=== PATIENT | male | born 1990 | race Native Hawaiian/Other Pacific Islander ===

== ENCOUNTER 2016-12-04 18:40 | Inpatient (IN) | payer OTHER ==
[2016-12-04] MEDS ORDERED: Sodium Chloride 0.9% 1,000 ML IV STA ×2 (20:05→22:47)
--- NOTE | 2016-12-04 20:18 | ED PDOC ---
HPI:Nausea, Vomiting, Diarrhea Pain Scale Rating Of: 0 Additional Complaint(s): 26 y/o M with unremarkable PMH presents with a 1 day history of fever and diarrhea. Patient reports waking up this morning feeling "really sick" and with urgent diarrhea. Since then, he has been experiencing fever around 104.0 and 5- 6 episodes of watery, non-bloody diarrhea. He has associated chills and nausea but denies abdominal pain, vomiting, dysuria, urinary urgency, malodorous urine , sore throat, rhinorrhea or cough. Patient traveled to [place] last week where he had unprotected receptive anal intercourse. He denies rectal pain or bleeding. Patient visited an urgent care center 4 hours ago for above complaints and was given augmentin for "protein in the urine." He also been taking Truvada for HIV pre-exposure prophylaxis for months. <Katarzyna Sheridan - Last Filed: 12/05/16 01:55> <Melinda Cooney - Last Filed: 12/05/16 15:17> Time Seen by Provider: 12/04/16 18:52 Chief Complaint (Nursing): Fever Supervising Attending Note - Supervising Attending Note The Documented history was done by the: Physician Correctional Therapy Director, Attending Physician The documented physical exam was done by the: Physician Correctional Therapy Director, Attending Physician - Attestation: I have personally seen and examined this patient.: Yes I have fully participated in the care of the patient.: Yes I have reviewed all pertinent clinical information, including history, physical exam and plan: Yes - Notes: Notes:: Fever, severe diarrhea, hypotension, hypokalemia, colitis. Hospitalized for sepsis Serial lactic acid negative for severe sepsis and pt reports at baseline he has low blood pressure. GEORGE Cho Med service for hospitalization <Melinda Cooney - Last Filed: 12/05/16 15:17> Past Medical History Vital Signs: Last Vital Signs Temp 102.4 F H 12/04/16 18:45 Pulse 110 H 12/04/16 18:45 Resp 20 12/04/16 18:45 BP 102/54 L 12/04/16 18:45 Pulse Ox 98 12/04/16 18:45 - Family History Family History: States: Unknown Family Hx <Katarzyna Sheridan - Last Filed: 12/05/16 01:55> Vital Signs: Last Vital Signs Temp 98.9 F 12/05/16 12:00 Pulse 77 12/05/16 12:00 Resp 18 12/05/16 12:00 BP 107/62 12/05/16 12:00 Pulse Ox 100 12/05/16 12:00 <ErosMelinda J - Last Filed: 12/05/16 15:17> - Home Medications Home Medications: Ambulatory Orders Medication Instructions Recorded Emtricitabine/Tenofovir Diso 1 tab PO DAILY 12/05/16 [Truvada 200 MG-300 MG] - Allergies Allergies/Adverse Reactions: Allergies Allergy/AdvReac Type Severity Reaction Status Date / Time No Known Allergies Allergy Verified 12/04/16 18:44 Review of Systems Constitutional: Positive for: Fever, Chills Cardiovascular: Negative for: Chest Pain, Palpitations Respiratory: Negative for: Cough, Shortness of Breath, Sputum, Wheezing Gastrointestinal: Positive for: Nausea, Diarrhea. Negative for: Vomiting, Abdominal Pain, Hematochezia, Rectal Pain Genitourinary Male: Negative for: Dysuria, Frequency, Hematuria, Penile Discharge, Penile Pain Neurological: Negative for: Confusion, Altered Mental Status, Dizziness <Katarzyna Sheridan - Last Filed: 12/05/16 01:55> Physical Exam - Physical Exam Appears: Positive for: No Acute Distress Head Exam: Positive for: ATRAUMATIC, NORMAL INSPECTION, NORMOCEPHALIC Skin: Positive for: Normal Color, Warm, Dry. Negative for: Diaphoresis Eye Exam: Positive for: Normal appearance, EOMI, PERRL ENT: Negative for: Sinus Pain/Drainage, Nasal Congestion, Pharyngeal Erythema, Tonsillar Exudate Cardiovascular/Chest: Positive for: Regular Rate, Rhythm. Negative for: Murmur , Tachycardia Respiratory: Positive for: Normal Breath Sounds. Negative for: Crackles, Rales , Stridor, Wheezing Gastrointestinal/Abdominal: Positive for: Bowel Sounds (hyperactive), Soft. Negative for: Tenderness, Distended, Rebound Back: Negative for: L CVA Tenderness, R CVA Tenderness Extremity: Positive for: Capillary Refill (<3s) Neurologic/Psych: Positive for: Alert, Oriented (x3) <Katarzyna Sheridan - Last Filed: 12/05/16 01:55> - Laboratory Results Result Diagrams: 12/04/16 20:40 12/04/16 20:40 - ECG O2 Sat by Pulse Oximetry: 98 - Progress ED Course And Treament: CBC, CMP, UA, Urine GC/Chlamydia and Stool studies ordered Tylenol, toradol, zofran, IVF bolus ordered 22:50 Pt received 2L NS bolus. Starting D5/NS Cipro + Flagyl administered Potassium bicarb 50meq given for hypokalemia <Katarzyna Sheridan - Last Filed: 12/05/16 01:55> - Laboratory Results Result Diagrams: 12/05/16 07:35 12/05/16 07:35 - Critical Care Total Time (In Min): 30 Comments: Serial exams, aggressive IV hydration, sepsis. Documented Critical Care: Time excludes all time spent performint seperately billable procedures <Melinda Cooney - Last Filed: 12/05/16 15:17> Disposition - Patient ED Disposition Is Patient to be Admitted: Yes Counseled Patient/Family Regarding: Studies Performed - Disposition Disposition Time: 01:56 - Pt Status Changed To: Hospital Disposition Of: Inpatient - Admit Certification Admit to Inpatient:: After my assessment, the patient will require hospitalization for at least two midnights. This is because of the severity of symptoms shown, intensity of services needed, and/or the medical risk in this patient being treated as an outpatient. <Katarzyna Sheridan - Last Filed: 12/05/16 01:55> <Melinda Cooney - Last Filed: 12/05/16 15:17> - Clinical Impression Clinical Impression: Colitis - Disposition Condition: FAIR
[2016-12-04 20:42] LABS: VENOUS BLOOD GAS BASE EXCESS 2.2 mmol/L (0.0-2.0); VENOUS BLOOD GAS PCO2 46 mmHg (40-60); VENOUS BLOOD PH 7.39 (7.32-7.43)
[2016-12-04 20:51] LABS: BASO % 0.2 % (0.0-2.0); HEMATOCRIT 44.2 % (35.0-51.0); LYMPH # 1.8 K/uL (1.0-4.3); LYMPH % 11.9 % (20.0-40.0); MEAN CELL VOLUME 94.9 fl (80.0-94.0); MEAN CORPUSCULAR HEMOGLOBIN 31.4 pg (27.0-31.0); MEAN CORPUSCULAR HGB CONC 33.1 g/dL (33.0-37.0); MEAN PLATELET VOLUME 7.5 fl (7.2-11.7); MONO # 1.3 K/uL (0.0-0.8); MONO % 8.6 % (0.0-10.0); NEUT # 11.9 K/uL (1.8-7.0); NEUT % 79.3 % (50.0-75.0); RED CELL DISTRIBUTION WIDTH 12.8 % (11.5-14.5)
[2016-12-04] MEDS ORDERED: K-Lyte 25meq EF Tab PO ONE (21:00)
[2016-12-04 21:16] LABS: RBC URINE 1 /hpf (0-3); URINE BILIRUBIN NEGATIVE (NEGATIVE); URINE BLOOD NEGATIVE (NEGATIVE); URINE COLOR YELLOW (YELLOW); URINE GLUCOSE (UA) NEG (Normal); URINE KETONE 20 mg/dL (NEGATIVE); URINE LEUKOCYTE ESTERASE TRACE Leu/uL (Negative); URINE PROTEIN NEGATIVE (NEGATIVE); URINE UROBILINOGEN 0.2-1.0 mg/dL (0.2-1.0); WBC URINE 3 /hpf (0-5)
[2016-12-04 21:25] LABS: ALB/GLOB RATIO 1.4 (1.0-2.1); ALKALINE PHOSPHATASE 48 U/L (38-126); ALT/SGPT 31 U/L (21-72); AST/SGOT 33 U/L (17-59); BILIRUBIN,TOTAL 1.7 mg/dl (0.2-1.3); BLOOD UREA NITROGEN 13 mg/dl (9-20); CALCIUM 8.7 mg/dL (8.4-10.2); CARBON DIOXIDE 25 mmol/L (22-30); CHLORIDE 96 mmol/L (98-107); GFR AFRICAN-AMERICAN > 60; GLUCOSE,RANDOM 111 mg/dL (75-110); MAGNESIUM 1.7 MG/DL (1.6-2.3); PHOSPHOROUS 3.1 mg/dl (2.5-4.5); POTASSIUM 3.3 MMOL/L (3.6-5.0); SODIUM 134 mmol/l (132-148); TOTAL PROTEIN 7.2 G/DL (6.3-8.2)
[2016-12-04] MEDS ORDERED: Atropine-Diphenoxylate 0.025-2.5 mg Tab PO ONE (22:00)
[2016-12-04] MEDS ORDERED: metroNIDAZOLE 500mg/100ml NS 100 ML IV STA (22:50)
[2016-12-04] MEDS ORDERED: Ciprofloxacin 400mg/200ml D5W 400 MG/200 ML BAG IV STA (22:50)
[2016-12-04] MEDS ORDERED: Sodium Chloride 0.9% 50 ML IV ONE (22:56)
[2016-12-04] MEDS ORDERED: Iohexol 300 100 ML IJ ONE (22:56)
[2016-12-04] MEDS ORDERED: Sodium Chloride 0.9% 2,000 ML IV STA (22:59)
[2016-12-05] MEDS ORDERED: Ciprofloxacin 400mg/200ml D5W 400 MG/200 ML BAG IVPB ONE (00:08)
[2016-12-05] MEDS ORDERED: K-Lyte 25meq EF Tab PO ONE (00:08)
[2016-12-05] MEDS ORDERED: metroNIDAZOLE 500mg/100ml NS 100 ML IVPB ONE (00:08)
[2016-12-05 00:17] LABS: VENOUS BLOOD GAS BASE EXCESS -2.4 mmol/L (0.0-2.0); VENOUS BLOOD GAS PCO2 42 mmHg (40-60); VENOUS BLOOD PH 7.35 (7.32-7.43)
[2016-12-05] MEDS: Potassium CL 10mEq/100ml 100 ML IVPB SCH ×2 (01:20→03:36)
[2016-12-05 08:02] LABS: HEMATOCRIT 38.2 % (35.0-51.0); MEAN CELL VOLUME 95.7 fl (80.0-94.0); MEAN CORPUSCULAR HEMOGLOBIN 31.5 pg (27.0-31.0); RED CELL DISTRIBUTION WIDTH 12.9 % (11.5-14.5); WHITE BLOOD COUNT 7.7 K/uL (4.8-10.8)
--- NOTE | 2016-12-05 08:17 | CT ---
PROCEDURE: CT Abdomen and Pelvis with contrast HISTORY: diarrhea hypotension COMPARISON: None. TECHNIQUE: Contrast dose: 90 cc Omnipaque 300 Radiation dose: Total exam DLP = 49.26 mGy-cm. This CT exam was performed using one or more of the following dose reduction techniques: Automated exposure control, adjustment of the mA and/or kV according to patient size, and/or use of iterative reconstruction technique. FINDINGS: LOWER THORAX: Unremarkable. LIVER: Unremarkable. No gross lesion or ductal dilatation. GALLBLADDER AND BILE DUCTS: Unremarkable gallbladder. Trace pericholecystic fluid. PANCREAS: Unremarkable. No gross lesion or ductal dilatation. SPLEEN: Unremarkable. ADRENALS: Unremarkable. No mass. KIDNEYS AND URETERS: Unremarkable. No hydronephrosis. No solid mass. VASCULATURE: Unremarkable. No aortic aneurysm. BOWEL: Thickening of the wall of colon which is diffuse and mild likely colitis. No evidence of mechanical bowel obstruction. APPENDIX: Normal appendix. PERITONEUM: Unremarkable. No free fluid. No free air. LYMPH NODES: Unremarkable. No enlarged lymph nodes. BLADDER: Unremarkable. REPRODUCTIVE: Unremarkable. BONES: No acute fracture. OTHER FINDINGS: None. IMPRESSION: Diffuse colitis without evidence of mechanical bowel obstruction. This appears to be uncomplicated without evidence of free fluid, free air or drainable collection. Incidental finding(s): Periportal edema, a trace pericholecystic fluid without CT manifestations of cholelithiasis/cholecystitis. Concordant results (preliminary interpretation) provided by [employer]. Procedure Completed: 23:16. Preliminary ([facility]) Report: Dictated and Authenticated: 23:52. Final Interpretation: 08:15. December 05, 2016.
--- NOTE | 2016-12-05 08:21 | HP ---
CHIEF COMPLAINT: Diarrhea. HISTORY OF PRESENT ILLNESS: This is a 26-year-old male without significant past medical history, but who is homosexual and is being treated with Truvada for pre-exposure prophylaxis, who recently went to [place] and had receptive anal intercourse, who after returning started having very high fever and about 5-6 watery, nonbloody diarrhea associated with chills and nausea and abdominal pain, so patien liu came to Emergency Room and was found to have colitis and was admitted for further management. REVIEW OF SYSTEMS: Positive for abdominal pain, nausea, vomiting, chills and high fevers. Otherwise is negative for headache, dizziness, syncope, loss of consciousness, chest pain, shortness of breath , any new joint or extremity pain. All other organ systems unremarkable. The patient was also given Augmentin during his visit to urgent care center just before the admission. PAST MEDICAL HISTORY: Unremarkable. PAST SURGICAL HISTORY: Unremarkable. PERSONAL HISTORY: The patient is homosexual, nonsmoker, nondrinker, no substance abuse. MEDICATIONS: The patient is on Truvada for pre-exposure prophylaxis, but as far as patient knows, he is HIV negative. ALLERGIES: The patient is not allergic to any medication. FAMILY HISTORY: Noncontributory. PHYSICAL EXAMINATION: GENERAL: Well-built, fairly-nourished, 26-year-old male, in no acute distress. VITAL SIGNS: Temperature 100.2, pulse 97, respiration 18, blood pressure 94/54. HEENT: Pupils reacting to light. No JVD, no thyromegaly, no lymphadenopathy, no nystagmus. Normoce phalic, atraumatic skull. HEART: S1, S2 normal, regular. No significant murmur, gallop or rub is heard. LUNGS: Shows good bilateral air exchange. No rales or rhonchi. ABDOMEN: Soft, nontender, no organomegaly, no fluid. Bowel sounds are plus. EXTERNAL GENITALIA: Appropriate for patient's age. RECTAL: Stool for occult blood is negative. EXTREMITIES: No edema, no calf swelling, no tenderness, no acute ischemia. CENTRAL NERVOUS SYSTEM: The patient is alert, awake, oriented x 3. There is no sign of any acute gr oss focal, motor or sensory neurological deficit. DIAGNOSTIC DATA: Available reviewed. WBC 15, hemoglobin 14.6, hematocrit 44, platelets 187. PH 7.3 9, pCO2 46, pO2 25, saturation is 83 and 48%. Of course, this is a venous blood gas. Sodium 134, po tassium 3.3, chloride 96, bicarb 25, BUN 13, creatinine 1.1. SMA-12 is unremarkable. Urinalysis is negative. CAT scan of abdomen although officially not reported, showed colitis. EKG does not reveal any acute ST-T changes. DIAGNOSTIC IMPRESSION: Sepsis syndrome, colitis. PLAN: As ordered. Case and plan discussed with patient. Suhas Cho MD cc: [id number] TT: 12/05/2016 08:20:03 en
[2016-12-05 08:24] LABS: ALB/GLOB RATIO 1.2 (1.0-2.1); ALKALINE PHOSPHATASE 28 U/L (38-126); ALT/SGPT 26 U/L (21-72); AST/SGOT 19 U/L (17-59); BILIRUBIN,TOTAL 0.8 mg/dl (0.2-1.3); BLOOD UREA NITROGEN 8 mg/dl (9-20); CALCIUM 7.5 mg/dL (8.4-10.2); CARBON DIOXIDE 24 mmol/L (22-30); CHLORIDE 105 mmol/L (98-107); CHOLESTEROL 81 mg/dL (0-199); GFR AFRICAN-AMERICAN > 60; GLUCOSE,RANDOM 106 mg/dL (75-110); POTASSIUM 3.6 MMOL/L (3.6-5.0); SODIUM 136 mmol/l (132-148); TOTAL PROTEIN 5.3 G/DL (6.3-8.2)
[2016-12-05 08:40] LABS: T4 4.39 ug/dl (5.5-11.0)
[2016-12-05 08:54] LABS: THYROID STIMULATING HORMONE 0.09 mIU/ML (0.46-4.68)
[2016-12-05] MEDS: Emtricitabine-Tenofovir 200 mg-300 mg Tab PO SCH (09:26)
[2016-12-05] MEDS: Enoxaparin 40 mg Syringe SC SCH (09:51)
[2016-12-05] MEDS: Ciprofloxacin 400mg/200ml D5W 400 MG/200 ML BAG IVPB SCH ×2 (10:00→21:09)
[2016-12-05] MEDS ORDERED: metroNIDAZOLE 500mg/100ml NS 100 ML IVPB SCH (10:00)
--- NOTE | 2016-12-05 11:50 | CP.PCM.CON ---
History of Present Illness - History of Present Illness History of Present Illness: 26 y/o M presents with a 1 day history of fever and diarrhea. Patient reports waking up this morning feeling "really sick" and with urgent diarrhea. Since then, he has been experiencing fever around 104.0 and 5-6 episodes of watery, non-bloody diarrhea. He has associated chills and nausea but denies abdominal pain, vomiting, dysuria, urinary urgency, malodorous urine, sore throat, rhinorrhea or cough. Patient traveled to [place] last week where he had unprotected receptive anal intercourse. He denies rectal pain or bleeding. Patient visited an urgent care center 4 hours ago for above complaints and was given augmentin Takes Truvada for HIV pre-exposure prophylaxis for months. Review of Systems - Constitutional Constitutional: As Per HPI, Anorexia, Fever, Malaise - EENT Eyes: absent: As Per HPI, Blind Spots, Blurred Vision, Change in Vision, Decreased Night Vision, Diplopia, Discharge, Dry Eye, Exophthalmos, Floaters, Irritation, Itchy Eyes, Loss of Peripheral Vision, Pain, Photophobia, Requires Corrective Lenses, Sees Flashes, Spots in Vision, Tunnel Vision, Other Visual Disturbances, Loss of Vision, Other Ears: absent: As Per HPI, Decreased Hearing, Ear Discharge, Ear Pain, Tinnitus, Abnormal Hearing, Disequilibrium, Dizziness, Other Nose/Mouth/Throat: absent: As Per HPI, Epistaxis, Nasal Congestion, Nasal Discharge, Nasal Obstruction, Nasal Trauma, Nose Pain, Post Nasal Drip, Sinus Pain, Sinus Pressure, Bleeding Gums, Change in Voice, Dental Pain, Dry Mouth, Dysphagia, Halitosis, Hoarsness, Lip Swelling, Mouth Lesions, Mouth Pain, Odynophagia, Sore Throat, Throat Swelling, Tongue Swelling, Facial Pain, Neck Pain, Neck Mass, Other - Cardiovascular Cardiovascular: absent: As Per HPI, Acrocyanosis, Chest Pain, Chest Pain at Rest , Chest Pain with Activity, Claudication, Diaphoresis, Dyspnea, Dyspnea on Exertion, Edema, Irregular Heart Rhythm, Pain Radiating to Arm/Neck/Jaw, Leg Edema, Leg Ulcers, Lightheadedness, Orthopnea, Palpitations, Paroxysmal Nocturnal Dyspnea, Pedal Edema, Radiating Pain, Rapid Heart Rate, Slow Heart Rate, Syncope, Other - Respiratory Respiratory: absent: As Per HPI, Cough, Dyspnea, Hemoptysis, Dyspnea on Exertion , Wheezing, Snoring, Stridor, Pain on Inspiration, Chest Congestion, Excessive Mucous Production, Change in Mucous Color, Pain with Coughing, Other - Gastrointestinal Gastrointestinal: As Per HPI - Genitourinary Genitourinary: absent: As Per HPI, Change in Urinary Stream, Difficulty Urinating, Dysuria, Flank Pain, Hematuria, Pyuria, Nocturia, Urinary Incontinence, Urinary Frequency, Urinary Hesitance, Urinary Urgency, Voiding Freq/Small Amts, Freq UTI, Hx Renal/Bladder Calculi, Hx /Renal Surgery, Bladder Distension, Other - Reproductive: Male Reproductive:Male: As Per HPI - Musculoskeletal Musculoskeletal: absent: As Per HPI, Abnormal Gait, Arthralgias, Atrophy, Back Pain, Deformity, Joint Swelling, Limited Range of Motion, Loss of Height, Muscle Cramps, Muscle Weakness, Myalgias, Neck Pain, Numbness, Radiating Pain into Limb, Stiffness, Tingling, Other - Integumentary Integumentary: absent: As Per HPI, Acne, Alopecia, Bleeding Lesions, Change in Hair, Change in Nails, Change in Pigmentation, Changing Lesions, Dry Skin, Erythema, Furuncle, Hirsutism, Lesions, New Lesions, Non-Healing Lesions, Photosensitivity, Pruritus, Rash, Skin Pain, Skin Ulcer, Sores, Striae, Swelling , Unusual Bruising, Wounds, Jaundice, Other - Neurological Neurological: absent: As Per HPI, Abnormal Gait, Abnormal Hearing, Abnormal Movements, Abnormal Speech, Behavioral Changes, Burning Sensations, Confusion, Convulsions, Disequilibrium, Dizziness, Numbness, Focal Weakness, Frequent Falls , Headaches, Lack of Coordination, Loss of Vision, Memory Loss, Paresthesias, Radicular Pain, Restless Legs, Sensory Deficit, Syncope, Tingling, Tremor, Vertigo, Weakness, Other Visual Disturbances, Other - Psychiatric Psychiatric: absent: As Per HPI, Abnormal Sleep Pattern, Anhedonia, Anxiety, Auditory Hallucinations, Behavioral Changes, Change in Appetite, Change in Libido, Confusion, Depression, Difficulty Concentrating, Hallucinations, Homicidal Ideation, Hopelessness, Irritability, Memory Loss, Mood Swings, Panic Attacks, Paranoia, Suicidal Ideation, Visual Hallucinations, Tactile Hallucinations, Other - Endocrine Endocrine: absent: As Per HPI, Change in Body Appearance, Change in Libido, Cold Intolorance, Deepening of Voice, Excessive Sweating, Fatigue, Flushing, Heat Intolorance, Increase in Ring/Shoe/Hat Size, Palpitations, Polydipsia, Polyphagia, Polyuria, Other - Hematologic/Lymphatic Hematologic: absent: As Per HPI, Easy Bleeding, Easy Bruising, Lymphadenopathy, Other Past Patient History - Past Medical History & Family History Past Medical History?: No - Past Social History Smoking Status: Never Smoked - CARDIAC Hx Cardiac Disorders: No - PULMONARY Hx Respiratory Disorders: No - NEUROLOGICAL Hx Neurological Disorder: No - HEENT Hx HEENT Problems: No - RENAL Hx Chronic Kidney Disease: No - ENDOCRINE/METABOLIC Hx Endocrine Disorders: No - HEMATOLOGICAL/ONCOLOGICAL Hx Blood Disorders: Yes (HIV) - INTEGUMENTARY Hx Dermatological Problems: No - MUSCULOSKELETAL/RHEUMATOLOGICAL Hx Falls: No - GENITOURINARY/GYNECOLOGICAL Hx Genitourinary Disorders: No - PSYCHIATRIC Hx Substance Use: No Meds Allergies/Adverse Reactions: Allergies Allergy/AdvReac Type Severity Reaction Status Date / Time No Known Allergies Allergy Verified 12/04/16 18:44 - Medications Medications: Current Medications Acetaminophen (Tylenol 325mg Tab) 650 mg PO Q6 PRN PRN Reason: Fever >100.4 F Last Admin: 12/05/16 09:01 Dose: 650 mg Emtricitabine/Tenofovir (Truvada 200 Mg-300 Mg) 1 tab PO DAILY [facility] Last Admin: 12/05/16 09:26 Dose: 1 tab Enoxaparin Sodium (Lovenox) 40 mg SC DAILY [facility] PRN Reason: Protocol Last Admin: 12/05/16 09:51 Dose: Not Given Dextrose/Sodium Chloride (Dextrose 5%-0.9% Ns 500 Ml) 1,000 mls @ 150 mls/hr IV .Q6H40M [facility] Last Admin: 12/05/16 00:31 Dose: 150 mls/hr Ciprofloxacin (Cipro 400mg/200ml Dsw) 400 mg in 200 mls @ 200 mls/hr IVPB Q12 [facility] Last Admin: 12/05/16 10:00 Dose: 200 mls/hr Metronidazole (Flagyl 500mg/100ml Ns) 100 mls @ 100 mls/hr IVPB Q8 [facility] Physical Exam - Constitutional Appears: Non-toxic, Chronically Ill - Head Exam Head Exam: NORMOCEPHALIC - Eye Exam Eye Exam: PERRL. absent: Scleral icterus - ENT Exam ENT Exam: Mucous Membranes Dry, Normal External Ear Exam - Neck Exam Neck exam: Negative for: Lymphadenopathy - Respiratory Exam Respiratory Exam: Decreased Breath Sounds, Clear to Auscultation Bilateral - Cardiovascular Exam Cardiovascular Exam: REGULAR RHYTHM, +S1, +S2 - GI/Abdominal Exam GI & Abdominal Exam: Diminished Bowel Sounds, Soft. absent: Tenderness - Rectal Exam Rectal Exam: Deferred - Exam Exam: NORMAL INSPECTION - Extremities Exam Extremities exam: Negative for: calf tenderness, pedal edema - Back Exam Back exam: absent: CVA tenderness (L), CVA tenderness (R), paraspinal tenderness - Neurological Exam Neurological exam: Alert, CN II-XII Intact, Oriented x3, Reflexes Normal - Psychiatric Exam Psychiatric exam: Normal Mood - Skin Skin Exam: Dry, Intact Results - Vital Signs Recent Vital Signs: Last Vital Signs Temp 99.0 F 12/05/16 10:01 Pulse 91 H 12/05/16 09:00 Resp 18 12/05/16 08:33 BP 105/67 12/05/16 08:33 Pulse Ox 100 12/05/16 08:33 - Labs Result Diagrams: 12/05/16 07:35 12/05/16 07:35 Labs: Laboratory Results - last 24 hr 12/05/16 12/05/16 07:35 07:35 WBC 7.7 RBC 3.99 L Hgb 12.6 D Hct 38.2 MCV 95.7 H MCH 31.5 H MCHC 33.0 RDW 12.9 Plt Count 146 Sodium 136 Potassium 3.6 Chloride 105 Carbon Dioxide 24 Anion Gap 11 BUN 8 L Creatinine 0.9 Est GFR ( Amer) > 60 Est GFR (Non-Af Amer) > 60 Random Glucose 106 Calcium 7.5 L Total Bilirubin 0.8 AST 19 ALT 26 Alkaline Phosphatase 28 L D Total Protein 5.3 L Albumin 2.9 L D Globulin 2.4 Albumin/Globulin Ratio 1.2 Triglycerides 39 Cholesterol 81 LDL Cholesterol Direct 34 HDL Cholesterol 32 Vitamin B12 409 Thyroxine (T4) 4.39 L TSH 3rd Generation 0.09 L Assessment & Plan (1) Diarrhea Status: Acute (2) Fever and chills Status: Acute (3) Colitis Status: Acute - Assessment and Plan (Free Text) Assessment: cant r/o acute HIV based on neg screening louis- will order Viral PCR - will need follow up for this consider rectal swab for gonorrhea and chlamydia await cultures and serologies agree with empiric rx
[2016-12-05] MEDS: metroNIDAZOLE 500mg/100ml NS 100 ML IVPB SCH ×2 (17:06→23:58)
--- NOTE | 2016-12-05 19:12 | CARD ---
APPROVED REPORT EKG Measurement Heart [id number] <Conclusion> Normal sinus rhythm Rightward axis Borderline ECG
[2016-12-05 23:44] VITALS: O2SAT 99
[2016-12-06 06:19] LABS: HEMATOCRIT 34.9 % (35.0-51.0); MEAN CORPUSCULAR HEMOGLOBIN 31.8 pg (27.0-31.0); MEAN CORPUSCULAR HGB CONC 33.4 g/dL (33.0-37.0); WHITE BLOOD COUNT 6.2 K/uL (4.8-10.8)
[2016-12-06 06:52] LABS: ALB/GLOB RATIO 1.1 (1.0-2.1); ALKALINE PHOSPHATASE 30 U/L (38-126); ALT/SGPT 25 U/L (21-72); AST/SGOT 26 U/L (17-59); BILIRUBIN,TOTAL 0.1 mg/dl (0.2-1.3); BLOOD UREA NITROGEN 5 mg/dl (9-20); CARBON DIOXIDE 28 mmol/L (22-30); CHLORIDE 107 mmol/L (98-107); GFR AFRICAN-AMERICAN > 60; GLUCOSE,RANDOM 114 mg/dL (75-110); POTASSIUM 3.4 MMOL/L (3.6-5.0); SODIUM 140 mmol/l (132-148); TOTAL PROTEIN 4.9 G/DL (6.3-8.2)
[2016-12-06 08:10] VITALS: BP 109/68; PULSE 68; RESP 16; TEMP 98.9
[2016-12-06] MEDS: metroNIDAZOLE 500mg/100ml NS 100 ML IVPB SCH (08:54)
[2016-12-06] MEDS: Ciprofloxacin 400mg/200ml D5W 400 MG/200 ML BAG IVPB SCH (08:54)
[2016-12-06] MEDS: Enoxaparin 40 mg Syringe SC SCH ×2 (08:55→09:05)
[2016-12-06] MEDS: Emtricitabine-Tenofovir 200 mg-300 mg Tab PO SCH (08:55)
[2016-12-06] MEDS ORDERED: Potassium Chloride 20 mEq ER Tab PO ONE (09:11)
--- NOTE | 2016-12-06 10:17 | CP.PCM.DIS ---
<Mendoza Aritamadyson - Last Filed: 12/06/16 10:15> Provider - Provider Date of Admission: 12/05/16 00:08 Attending physician: Suhas Cho MD Time Spent in preparation of Discharge (in minutes): 20 Diagnosis - Discharge Diagnosis (1) Colitis Status: Acute (2) Diarrhea Status: Acute (3) Fever and chills Status: Acute Hospital Course - Lab Results Lab Results: Most Recent Lab Values WBC 6.2 K/uL (4.8-10.8) 12/06/16 05:25 RBC 3.67 Mil/uL (4.40-5.90) L 12/06/16 05:25 Hgb 11.7 g/dL (12.0-18.0) L 12/06/16 05:25 Hct 34.9 % (35.0-51.0) L 12/06/16 05:25 MCV 95.0 fl (80.0-94.0) H 12/06/16 05:25 MCH 31.8 pg (27.0-31.0) H 12/06/16 05:25 MCHC 33.4 g/dL (33.0-37.0) 12/06/16 05:25 RDW 13.0 % (11.5-14.5) 12/06/16 05:25 Plt Count 117 K/uL (130-400) L D 12/06/16 05:25 MPV 7.5 fl (7.2-11.7) 12/04/16 20:40 Neut % (Auto) 79.3 % (50.0-75.0) H 12/04/16 20:40 Lymph % (Auto) 11.9 % (20.0-40.0) L 12/04/16 20:40 [place] % (Auto) 8.6 % (0.0-10.0) 12/04/16 20:40 Eos % (Auto) 0.0 % (0.0-4.0) 12/04/16 20:40 Baso % (Auto) 0.2 % (0.0-2.0) 12/04/16 20:40 Neut # 11.9 K/uL (1.8-7.0) H 12/04/16 20:40 Lymph # 1.8 K/uL (1.0-4.3) 12/04/16 20:40 [place] # 1.3 K/uL (0.0-0.8) H 12/04/16 20:40 Eos # 0.0 K/uL (0.0-0.7) 12/04/16 20:40 Baso # 0.0 K/uL (0.0-0.2) 12/04/16 20:40 pO2 25 mm/Hg (30-55) L 12/04/16 20:35 VBG pH 7.39 (7.32-7.43) 12/04/16 20:35 VBG pCO2 46 mmHg (40-60) 12/04/16 20:35 VBG HCO3 25.2 mmol/L 12/04/16 20:35 VBG Total CO2 29.2 mmol/L (22-28) H 12/04/16 20:35 VBG O2 Sat (Calc) 48.7 % (40-65) 12/04/16 20:35 VBG Base Excess 2.2 mmol/L (0.0-2.0) H 12/04/16 20:35 VBG Potassium 3.1 mmol/L (3.6-5.2) L 12/04/16 20:35 Sodium 131.0 mmol/L (132-148) L 12/04/16 20:35 Chloride 99.0 mmol/L (98-107) 12/04/16 20:35 Glucose 112 mg/dL (75-110) H 12/04/16 20:35 Lactate 1.6 mmol/L (0.7-2.1) 12/04/16 20:35 FiO2 21.0 % 12/04/16 20:35 Sodium 140 mmol/l (132-148) 12/06/16 05:25 Potassium 3.4 MMOL/L (3.6-5.0) L 12/06/16 05:25 Chloride 107 mmol/L (98-107) 12/06/16 05:25 Carbon Dioxide 28 mmol/L (22-30) 12/06/16 05:25 Anion Gap 8 (10-20) L 12/06/16 05:25 BUN 5 mg/dl (9-20) L 12/06/16 05:25 Creatinine 0.8 mg/dL (0.8-1.5) 12/06/16 05:25 Est GFR ( Amer) > 60 12/06/16 05:25 Est GFR (Non-Af Amer) > 60 12/06/16 05:25 POC Glucose (mg/dL) 120 mg/dL (65-110) H 12/04/16 20:24 Random Glucose 114 mg/dL (75-110) H 12/06/16 05:25 Calcium 8.0 mg/dL (8.4-10.2) L 12/06/16 05:25 Phosphorus 3.1 mg/dl (2.5-4.5) 12/04/16 20:40 Magnesium 1.7 MG/DL (1.6-2.3) 12/04/16 20:40 Total Bilirubin 0.1 mg/dl (0.2-1.3) L 12/06/16 05:25 AST 26 U/L (17-59) 12/06/16 05:25 ALT 25 U/L (21-72) 12/06/16 05:25 Alkaline Phosphatase 30 U/L (38-126) L 12/06/16 05:25 Total Protein 4.9 G/DL (6.3-8.2) L 12/06/16 05:25 Albumin 2.6 g/dL (3.5-5.0) L 12/06/16 05:25 Globulin 2.4 gm/dL (2.2-3.9) 12/06/16 05:25 Albumin/Globulin Ratio 1.1 (1.0-2.1) 12/06/16 05:25 Triglycerides 39 mg/DL (0-149) 12/05/16 07:35 Cholesterol 81 mg/dL (0-199) 12/05/16 07:35 LDL Cholesterol Direct 34 mg/dL (0-129) 12/05/16 07:35 HDL Cholesterol 32 MG/DL (30-70) 12/05/16 07:35 Vitamin B12 409 pg/mL (239-931) 12/05/16 07:35 Thyroxine (T4) 4.39 ug/dl (5.5-11.0) L 12/05/16 07:35 TSH 3rd Generation 0.09 mIU/ML (0.46-4.68) L 12/05/16 07:35 Venous Blood Potassium 3.1 mmol/L (3.6-5.2) L 12/04/16 20:35 Urine Color Yellow (YELLOW) 12/04/16 20:40 Urine Clarity Clear (Clear) 12/04/16 20:40 Urine pH 6.0 (5.0-8.0) 12/04/16 20:40 Ur Specific [place] 1.018 (1.003-1.030) 12/04/16 20:40 Urine Protein Negative mg/dL (NEGATIVE) 12/04/16 20:40 Urine Glucose (UA) Neg mg/dL (Normal) 12/04/16 20:40 Urine Ketones 20 mg/dL (NEGATIVE) 12/04/16 20:40 Urine Blood Negative (NEGATIVE) 12/04/16 20:40 Urine Nitrate Negative (NEGATIVE) 12/04/16 20:40 Urine Bilirubin Negative (NEGATIVE) 12/04/16 20:40 Urine Urobilinogen 0.2-1.0 mg/dL (0.2-1.0) 12/04/16 20:40 Ur Leukocyte Esterase Trace [place]/uL (Negative) 12/04/16 20:40 Urine RBC (Auto) 1 /hpf (0-3) 12/04/16 20:40 Urine Microscopic WBC 3 /hpf (0-5) 12/04/16 20:40 Ur Squamous Epith Cells < 1 /hpf (0-5) 12/04/16 20:40 Amorphous Sediment Rare /ul (<OCC) H 12/04/16 20:40 Stool Leukocytes, Qual Positive (NEGATIVE) H 12/05/16 07:57 HIV-1 Ab Rapid Screen Non reactive (NON REAC) 12/04/16 20:40 HIV 1&2 Antibody Screen Negative (NEGATIVE) 12/05/16 07:35 - Hospital Course Hospital Course: 26yo M with PMHx MSM admitted for colitis. IV abx cipro and flagyl started. ID Dr. Ray c/s for management. HIV screening negative, Pt on truvada for HIV ppx. d/c with PO abx x7 days cipro and flagyl and to FU with PMD. Discharge Exam - Head Exam Head Exam: NORMOCEPHALIC - Eye Exam Eye Exam: Normal appearance - ENT Exam ENT Exam: Mucous Membranes Moist - Neck Exam Neck exam: Normal Inspection - Respiratory Exam Respiratory Exam: NORMAL BREATHING PATTERN - Cardiovascular Exam Cardiovascular Exam: REGULAR RHYTHM - GI/Abdominal Exam GI & Abdominal Exam: Soft, Tenderness - Extremities Exam Extremities exam: normal inspection - Back Exam Back exam: vertebral tenderness - Neurological Exam Neurological exam: Alert, Oriented x3 - Skin Skin Exam: Dry, Warm Discharge Plan - Discharge Medications Prescriptions: Ciprofloxacin [Cipro] 500 mg PO Q12 #14 tab Metronidazole [Flagyl] 500 mg PO Q8 #21 tablet - Follow Up Plan Condition: FAIR Disposition: HOME/ ROUTINE Instructions: Dehydration (DC) <Suhas Cho - Last Filed: 12/09/16 17:49> Provider - Provider Date of Admission: 12/05/16 00:08 Attending physician: Suhas Cho MD Hospital Course - Lab Results Lab Results: Micro Results 12/05/16 07:57 Stool Stool Culture - Final NO SALMONELLA, SHIGELLA OR CAMPYLOBACTER ISOLATED. 12/05/16 07:57 Stool Ova and Parasite Concentrate Exam - Final Most Recent Lab Values WBC 6.2 K/uL (4.8-10.8) 12/06/16 05:25 RBC 3.67 Mil/uL (4.40-5.90) L 12/06/16 05:25 Hgb 11.7 g/dL (12.0-18.0) L 12/06/16 05:25 Hct 34.9 % (35.0-51.0) L 12/06/16 05:25 MCV 95.0 fl (80.0-94.0) H 12/06/16 05:25 MCH 31.8 pg (27.0-31.0) H 12/06/16 05:25 MCHC 33.4 g/dL (33.0-37.0) 12/06/16 05:25 RDW 13.0 % (11.5-14.5) 12/06/16 05:25 Plt Count 117 K/uL (130-400) L D 12/06/16 05:25 MPV 7.5 fl (7.2-11.7) 12/04/16 20:40 Neut % (Auto) 79.3 % (50.0-75.0) H 12/04/16 20:40 Lymph % (Auto) 11.9 % (20.0-40.0) L 12/04/16 20:40 [place] % (Auto) 8.6 % (0.0-10.0) 12/04/16 20:40 Eos % (Auto) 0.0 % (0.0-4.0) 12/04/16 20:40 Baso % (Auto) 0.2 % (0.0-2.0) 12/04/16 20:40 Neut # 11.9 K/uL (1.8-7.0) H 12/04/16 20:40 Lymph # 1.8 K/uL (1.0-4.3) 12/04/16 20:40 [place] # 1.3 K/uL (0.0-0.8) H 12/04/16 20:40 Eos # 0.0 K/uL (0.0-0.7) 12/04/16 20:40 Baso # 0.0 K/uL (0.0-0.2) 12/04/16 20:40 pO2 25 mm/Hg (30-55) L 12/04/16 20:35 VBG pH 7.39 (7.32-7.43) 12/04/16 20:35 VBG pCO2 46 mmHg (40-60) 12/04/16 20:35 VBG HCO3 25.2 mmol/L 12/04/16 20:35 VBG Total CO2 29.2 mmol/L (22-28) H 12/04/16 20:35 VBG O2 Sat (Calc) 48.7 % (40-65) 12/04/16 20:35 VBG Base Excess 2.2 mmol/L (0.0-2.0) H 12/04/16 20:35 VBG Potassium 3.1 mmol/L (3.6-5.2) L 12/04/16 20:35 Sodium 131.0 mmol/L (132-148) L 12/04/16 20:35 Chloride 99.0 mmol/L (98-107) 12/04/16 20:35 Glucose 112 mg/dL (75-110) H 12/04/16 20:35 Lactate 1.6 mmol/L (0.7-2.1) 12/04/16 20:35 FiO2 21.0 % 12/04/16 20:35 Sodium 140 mmol/l (132-148) 12/06/16 05:25 Potassium 3.4 MMOL/L (3.6-5.0) L 12/06/16 05:25 Chloride 107 mmol/L (98-107) 12/06/16 05:25 Carbon Dioxide 28 mmol/L (22-30) 12/06/16 05:25 Anion Gap 8 (10-20) L 12/06/16 05:25 BUN 5 mg/dl (9-20) L 12/06/16 05:25 Creatinine 0.8 mg/dL (0.8-1.5) 12/06/16 05:25 Est GFR ( Amer) > 60 12/06/16 05:25 Est GFR (Non-Af Amer) > 60 12/06/16 05:25 POC Glucose (mg/dL) 120 mg/dL (65-110) H 12/04/16 20:24 Random Glucose 114 mg/dL (75-110) H 12/06/16 05:25 Calcium 8.0 mg/dL (8.4-10.2) L 12/06/16 05:25 Phosphorus 3.1 mg/dl (2.5-4.5) 12/04/16 20:40 Magnesium 1.7 MG/DL (1.6-2.3) 12/04/16 20:40 Total Bilirubin 0.1 mg/dl (0.2-1.3) L 12/06/16 05:25 AST 26 U/L (17-59) 12/06/16 05:25 ALT 25 U/L (21-72) 12/06/16 05:25 Alkaline Phosphatase 30 U/L (38-126) L 12/06/16 05:25 Total Protein 4.9 G/DL (6.3-8.2) L 12/06/16 05:25 Albumin 2.6 g/dL (3.5-5.0) L 12/06/16 05:25 Globulin 2.4 gm/dL (2.2-3.9) 12/06/16 05:25 Albumin/Globulin Ratio 1.1 (1.0-2.1) 12/06/16 05:25 Triglycerides 39 mg/DL (0-149) 12/05/16 07:35 Cholesterol 81 mg/dL (0-199) 12/05/16 07:35 LDL Cholesterol Direct 34 mg/dL (0-129) 12/05/16 07:35 HDL Cholesterol 32 MG/DL (30-70) 12/05/16 07:35 Vitamin B12 409 pg/mL (239-931) 12/05/16 07:35 Thyroxine (T4) 4.39 ug/dl (5.5-11.0) L 12/05/16 07:35 TSH 3rd Generation 0.09 mIU/ML (0.46-4.68) L 12/05/16 07:35 Venous Blood Potassium 3.1 mmol/L (3.6-5.2) L 12/04/16 20:35 Urine Color Yellow (YELLOW) 12/04/16 20:40 Urine Clarity Clear (Clear) 12/04/16 20:40 Urine pH 6.0 (5.0-8.0) 12/04/16 20:40 Ur Specific [place] 1.018 (1.003-1.030) 12/04/16 20:40 Urine Protein Negative mg/dL (NEGATIVE) 12/04/16 20:40 Urine Glucose (UA) Neg mg/dL (Normal) 12/04/16 20:40 Urine Ketones 20 mg/dL (NEGATIVE) 12/04/16 20:40 Urine Blood Negative (NEGATIVE) 12/04/16 20:40 Urine Nitrate Negative (NEGATIVE) 12/04/16 20:40 Urine Bilirubin Negative (NEGATIVE) 12/04/16 20:40 Urine Urobilinogen 0.2-1.0 mg/dL (0.2-1.0) 12/04/16 20:40 Ur Leukocyte Esterase Trace [place]/uL (Negative) 12/04/16 20:40 Urine RBC (Auto) 1 /hpf (0-3) 12/04/16 20:40 Urine Microscopic WBC 3 /hpf (0-5) 12/04/16 20:40 Ur Squamous Epith Cells < 1 /hpf (0-5) 12/04/16 20:40 Amorphous Sediment Rare /ul (<OCC) H 12/04/16 20:40 Stool Leukocytes, Qual Positive (NEGATIVE) H 12/05/16 07:57 C.trachomatis RNA (TMA) Not detected (Not Detected) 12/04/16 20:40 HIV-1 Ab Rapid Screen Non reactive (NON REAC) 12/04/16 20:40 HIV-1 RNA Qnt (RT-PCR) <1.30 not detected (<1.30) 12/05/16 12:40 HIV 1&2 Antibody Screen Negative (NEGATIVE) 12/05/16 07:35 N.gonorrhoeae RNA (TMA) Not detected (Not Detected) 12/04/16 20:40
== END 2016-12-06 12:50 | disposition home or self-care (01) | DRG 392 ==
LOC: H.ER 18:40 → H.ERHOLD 12-05 00:08 → H.TEL 12-05 01:54
PROVIDERS: ADMIT Internal Medicine; ATTEND Internal Medicine
DX: K52.9 Noninfective gastroenteritis and colitis, unspecified (principal); R50.9 Fever, unspecified; Z20.6 Contact with and (suspected) exposure to human immunodeficiency virus [HIV]